=== PATIENT | male | born 1995 | race Caucasian/White ===

== ENCOUNTER 2017-01-09 05:26 | Day surgery (SDC) | payer OTHER ==
[~2017-01-09] VITALS: Ht 180.3 cm; Wt 85.3 kg
[~2017-01-09 05:26] MED LIST: LIORESAL10 MG PO; OXAYDO5 MG PO; TYLENOL EXTRA500 MG PO; TYLENOL REGULA325 MG PO
[2017-01-09 05:59] VITALS: BP 126/78
[2017-01-09] MEDS ORDERED: PERCOCET 5/31 TABLET PO (09:04)
[2017-01-09] MEDS ORDERED: COLACE100 MG PO (09:04)
[2017-01-09 10:14] VITALS: BP 112/65
[2017-01-09 11:17] VITALS: BP 109/71
== END 2017-01-09 11:22 | disposition home or self-care (01) ==
LOC: SDC 05:26
PROC: 0YU64JZ Supplement Left Inguinal Region with Synthetic Substitute, Percutaneous Endoscopic Approach (ICD-10-PCS; principal; 2017-01-09)
DX: K40.90 Unilateral inguinal hernia, without obstruction or gangrene, not specified as recurrent (principal); Z90.81 Acquired absence of spleen; J30.2 Other seasonal allergic rhinitis
CPT/HCPCS: C1727; C1781; J0330; J0690; J2250; J2405; J2710; J3010